=== PATIENT | female | born 1990 | race Asian ===

== ENCOUNTER 2019-05-18 09:47 | Emergency (ER) | payer BC ==
[~2019-05-18] VITALS: Ht 160 cm; Wt 61.5 kg
[2019-05-18] MEDS ORDERED: ACET325T14 PO (10:54)
--- NOTE | 2019-05-18 10:54 | NUR ---
PAITENT IN ROOM. AWAITING DOCTOR DISPO. FAMILY MEMBER IN ROOM.
[2019-05-18] MEDS ORDERED: MORPHINE SULFATE 4 MG/ML, 1ML IVPush PRN (11:30)
[2019-05-18] MEDS ORDERED: ONDANSETRON 2MG/ML, 2ML IVPush ONE (11:30)
[2019-05-18] MEDS ORDERED: SODIUM CHLORIDE 0.9% 1,000ML IVBOLUS ONE (11:30)
[2019-05-18] MEDS ORDERED: ONDANSETRON 2MG/ML, 2ML ONE (11:31)
[2019-05-18] MEDS ORDERED: MORPHINE SULFATE 4 MG/ML, 1ML ONE (11:31)
[2019-05-18 11:32] LABS: RAPID INFLUENZA A Negative (Negative); RAPID INFLUENZA B POSITIVE (Negative)
[2019-05-18 11:45] LABS: BASOPHILS # (AUTO) 0.02 x10^3/uL (0-0.1); BASOPHILS % (AUTO) 0 % (0-1); EOSINOPHILS # (AUTO) 0.01 x10^3/uL (0-0.4); EOSINOPHILS % (AUTO) 0 % (1-7); LYMPHOCYTES # (AUTO) 0.48 x10^3/uL (1-3.4); LYMPHOCYTES % (AUTO) 10 % (22-44); MD NO; MEAN CORPUSCULAR HEMOGLOBIN 29.7 pg (27.0-34.8); MEAN CORPUSCULAR HGB CONC 33.7 g/dL (32.4-35.8); MEAN CORPUSCULAR VOLUME 88.1 fL (80-100); MEAN PLATELET VOLUME 7.9 fL (7.4-10.4); MONOCYTES # (AUTO) 0.48 x10^3/uL (0.2-0.8); MONOCYTES % (AUTO) 10 % (2-9); NEUTROPHILS # (AUTO) 3.86 x10^3/uL (1.8-6.8); NEUTROPHILS % (AUTO) 80 % (42-75); PLATELET COUNT 298 x10^3/uL (130-400); RED BLOOD COUNT 4.78 x10^6/uL (3.82-5.3); RED CELL DISTRIBUTION WIDTH 13.2 % (9.6-15.2)
[2019-05-18 11:51] LABS: MICROSCOPIC NOT IND
[2019-05-18 11:55] LABS: ALANINE AMINOTRANSFERASE 52 U/L (12-78); ALBUMIN 4.4 g/dL (3.4-5.0); ANION GAP 8 mmol/L (5-15); CALCIUM 8.9 mg/dL (8.5-10.1); CHLORIDE 105 mmol/L (98-107); CREATININE 0.78 mg/dL (0.55-1.02)
[2019-05-18 11:55] LABS: CULTURE INDICATED? NO
[2019-05-18 11:57] LABS: ALKALINE PHOSPHATASE 94 U/L (45-117); BILIRUBIN,TOTAL 0.6 mg/dL (0.2-1.0); TOTAL PROTEIN 9.5 g/dL (6.4-8.2)
[2019-05-18] MEDS ORDERED: SODIUM CHLORIDE FLUSH 10ML SYR IVF ONE (12:00)
--- NOTE | 2019-05-18 12:09 | NUR ---
ANNA REPORTS PAIN IMPROVEMENT.
[2019-05-18] MEDS ORDERED: OSELTAMIVIR 75 MG CAPSULE ONE (12:25)
[2019-05-18] MEDS ORDERED: OSELTAMIVIR 75 MG CAPSULE PO ONE (12:30)
[2019-05-18 12:45] VITALS: BP 105/64
== END 2019-05-18 12:48 | disposition home or self-care (01) ==
LOC: ED 11:48
DX: J10.1 Influenza due to other identified influenza virus with other respiratory manifestations (principal); E78.5 Hyperlipidemia, unspecified; R42 Dizziness and giddiness
CPT/HCPCS: 36415; 71045; 80053; 81003; 83605; 85025; 87040; 87081; 87400; 87880; 96361; 96374; 96375; 99284; J2270; J2405; J7030